=== PATIENT | male | born 1980 | race Two or more races ===

== ENCOUNTER 2023-08-31 06:16 | Emergency (ER) | payer MEDICAID ==
[~2023-08-31] VITALS: Ht 190.5 cm; Wt 137.0 kg
[2023-08-31 06:19] VITALS: TEMP 97.8
[2023-08-31] MEDS ORDERED: iohexol 300mg/ml 100ml inj. ONE (08:00)
[2023-08-31] MEDS: predniSONE 5mg tablet PO SCH (08:25)
[2023-08-31 08:49] LABS: STREP A SCREEN NEGATIVE (Neg)
[2023-08-31 08:54] VITALS: O2SAT 99
[2023-08-31 09:04] VITALS: BP 147/97; PULSE 78; RESP 17
[2023-08-31 09:04] LABS: HEMOGLOBIN 14.1 g/dl (14.0-17.9); MEAN CORPUSCULAR HEMOGLOBIN 30.5 PG (27.0-31.0); MEAN CORPUSCULAR HGB CONC 34.5 g/dL (33.0-36.5); MEAN CORPUSCULAR VOLUME 88.6 FL (78-98); RED BLOOD COUNT 4.63 X10'6 (4.70-6.10); RED CELL DISTRIBUTION WIDTH 13.1 % (11.5-14.5); WHITE BLOOD COUNT 6.5 X10'3 (4.5-11.0)
[2023-08-31 09:05] LABS: BASOPHILS % (AUTO) 0.8 % (0-1); EOSINOPHILS # (AUTO) 0.2 X10'3 (0-0.9); EOSINOPHILS % (AUTO) 3.7 % (0-6); LYMPHOCYTES # (AUTO) 1.6 X10'3 (1.1-4.8); LYMPHOCYTES % (AUTO) 25.5 % (21-51); MEAN PLATELET VOLUME 7.4 FL (7.4-10.4); MONOCYTES # (AUTO) 0.5 X10'3 (0-0.9); MONOCYTES % (AUTO) 7.6 % (2-12); NEUTROPHILS % (AUTO) 62.4 % (42-75); PLATELET COUNT 316 X10'3 (140-440)
[2023-08-31 10:48] LABS: ALANINE AMINOTRANSFERASE 66 U/L (12-78); ALBUMIN 3.4 G/DL (3.4-5.0); ALBUMIN/GLOBULIN RATIO 0.9 (1.1-1.5); ALKALINE PHOSPHATASE 71 IU/L (46-116); ANION GAP 8 (8-16); ASPARTATE AMINO TRANSFERASE 27 U/L (10-37); BILIRUBIN,TOTAL 0.6 MG/DL (0.1-1.0); BLOOD UREA NITROGEN 23 MG/DL (7-18); BUN/CREATININE RATIO 25.3 (10.0-20.0); C-REACTIVE PROTEIN 0.55 MG/DL (0.0-0.5); CALCIUM 8.1 MG/DL (8.5-10.1); CHLORIDE 106 MMOL/L (99-107); CREATININE 0.91 MG/DL (0.60-1.10); GLUCOSE 105 MG/DL (70-104); POTASSIUM 4.2 MMOL/L (3.5-5.1); SODIUM 140 MMOL/L (135-145); TOTAL CARBON DIOXIDE 25.7 MMOL/L (24-32); TOTAL PROTEIN 7.1 G/DL (6.4-8.2); eCRCL 125 ML/MIN; eGFR > 90 ML/MIN
[2023-08-31] MEDS: ibuprofen 200mg tablet PO SCH (11:01)
[2023-08-31] MEDS ORDERED: IBUP-1984 PO (11:10)
[2023-08-31] MEDS ORDERED: PRED10TA23 PO (11:10)
[2023-08-31] MEDS ORDERED: ibuprofen 200mg tablet PO SCH (13:00)
== END 2023-08-31 11:36 | disposition home or self-care (01) ==
LOC: ER 06:17
DX: J02.9 Acute pharyngitis, unspecified (principal); Z20.822 Contact with and (suspected) exposure to COVID-19; H92.03 Otalgia, bilateral; R49.9 Unspecified voice and resonance disorder; K59.00 Constipation, unspecified
CPT/HCPCS: 36415; 70491; 80053; 84145; 85025; 85651; 86140; 87081; 87811; 87880; 99285; J3490; J7512; Q9967